=== PATIENT | female | born 1960 | race Caucasian/White ===

== ENCOUNTER 2021-04-05 04:32 | Day surgery (SDC) | payer OTHER ==
[2021-04-03 16:52] VITALS: BMI 21.5
[2021-04-05] MEDS ORDERED: LIDOCAINE HCL 1%, 10 MG/ML (20ML VIAL) ONE ×2 (07:09→10:40)
[2021-04-05] MEDS ORDERED: BUPIVACAINE HCL/PF 0.5% (5MG/ML) 10 ML VIAL ONE (07:09)
[2021-04-05] MEDS ORDERED: oxyCODONE HCL 5 MG TABLET PO PRN (10:27)
[2021-04-05] MEDS ORDERED: PROMETHAZINE HCL 25 MG/1 ML VIAL IVPB PRN (10:27)
[2021-04-05] MEDS ORDERED: ONDANSETRON 4 MG/2 ML VIAL IVPUSH PRN (10:27)
[2021-04-05] MEDS ORDERED: LACTATED RINGERS SOLUTION 1,000 ML IV SCH (10:30)
[2021-04-05] MEDS ORDERED: PROPOFOL 20 ML ONE ×2 (10:47→11:14)
[2021-04-05] MEDS ORDERED: MIDAZOLAM HCL 2 MG/2 ML SINGLE DOSE VIAL ONE (10:47)
[2021-04-05] MEDS ORDERED: LIDOCAINE HCL/PF 2% SDV 5ML VIAL ONE (10:48)
[2021-04-05] MEDS ORDERED: ceFAZolin SODIUM 1 GM VIAL ONE (10:48)
[2021-04-05] MEDS ORDERED: SODIUM CHLORIDE 0.9% P/F 10 ML VIAL IJ ONE (10:48)
[2021-04-05] MEDS ORDERED: GLYCOPYRROLATE 0.2 MG/1 ML VIAL ONE (10:48)
[2021-04-05] MEDS ORDERED: ceFAZolin SODIUM 1 GM VIAL IVPB ONE (10:58)
[2021-04-05] MEDS ORDERED: LIDOCAINE HCL 1%, 10 MG/ML (20ML VIAL) NR ONE (11:00)
[2021-04-05] MEDS ORDERED: KETOROLAC TROMETHAMINE 30 MG/1 ML VIAL ONE (11:03)
[2021-04-05] MEDS ORDERED: BUPIVACAINE HCL/PF 0.5% (5MG/ML) 10 ML VIAL IJ ONE (11:50)
[2021-04-05 13:35] VITALS: BP 130/80; PULSE 60; TEMP 97.2
== END 2021-04-05 13:30 | disposition home or self-care (01) ==
LOC: JASU-SURG 04:32
PROVIDERS: ATTEND Podiatrist Foot Surgery
PROC: 0QBN0ZZ Excision of Right Metatarsal, Open Approach (ICD-10-PCS; principal; 2021-04-05 10:00)
DX: M20.21 Hallux rigidus, right foot (principal)
CPT/HCPCS: 88304-TC; 88311-TC; 97116-GP